=== PATIENT | male | born 1995 | race Caucasian/White ===

== ENCOUNTER 2017-06-07 01:22 | Emergency (ER) | payer BC ==
[~2017-06-07 01:22] MED LIST: CEPH-460 PO; HYDR12.56 PO; PERC2.5T PO
[2017-06-07 01:24] VITALS: BP 163/102; PULSE 76; RESP 16; TEMP 98.6; O2SAT 98
--- NOTE | 2017-06-07 02:58 | PD ---
HPI Chief Complaint: Injury Time Seen by Provider: 02:49 Travel History International Travel<30 days: No Contact w/Intl Traveler<30days: No Traveled to known affect area: No History of Present Illness HPI Patient comes in complaining injury to this left pinky finger occurred shortly prior to arrival. Patient states he fell causing injury. Patient states he felt like he dislocated it and tried pulling on his finger. Patient has not been able to extend distal phalanx of his left pinky since. Patient denies any pain with this. Patient placed ice prior to coming emergency department. Patient denies anything making symptoms better or worse. Denies any numbness or tingling. Denies any head injury or loss of consciousness. [facility] Social History Alcohol Use: No Tobacco Use: No Substance Use: No Allergies-Medications (Allergen,Severity, Reaction): Coded Allergies: Aspirin (Unverified Allergy, Severe, 06/07/17) Reported Meds & Prescriptions Reported Meds & Active Scripts Active Reported Hydrochlorothiazide 12.5 Mg Tab 12.5 Mg PO DAILY Review of Systems Except as stated in HPI: all other systems reviewed are Neg Physical Exam Narrative GENERAL: Well-developed, well nourished, in no acute distress, and non-ill appearing. SKIN: Focused skin assessment warm and dry. HEAD: Atraumatic. Normocephalic. EYES: Pupils equal and round. EOMI. No scleral icterus. No injection or drainage. ENT: No nasal bleeding or discharge. Mucous membranes pink and moist. NECK: Trachea midline. Supple. No nuclear rigidity. CARDIOVASCULAR: Radial pulses 2+, intact, and equal bilaterally. Capillary refill less than 2 seconds. RESPIRATORY: No accessory muscle use. No respiratory distress. MUSCULOSKELETAL: No obvious deformities. No clubbing. No cyanosis. No edema. Full range of motion with the exception patient not able to extend the distal phalanx of his left pinky finger. Appears to have a mallet finger. NEUROLOGICAL: Awake and alert. No obvious cranial nerve deficits. Motor grossly within normal limits. Normal speech. PSYCHIATRIC: Appropriate mood and affect; insight and judgment normal. Data Data Last Documented VS Vital Signs Date Time Temp Pulse Resp B/P Pulse Ox O2 Delivery O2 Flow Rate FiO2 06/07/17 03:08 76 16 96 Room Air 06/07/17 01:24 98.6 163/102 Orders Finger ([id number]) (06/07/17 ) Splint Or Brace Apply/Monitor (06/07/17 03:40) Finger Splint (06/07/17 ) MDM Medical Decision Making Medical Screen Exam Complete: Yes Emergency Medical Condition: Yes Interpretation(s) Finger x-ray by the radiologist shows: Hyperextension at the fifth digit PIP joint. No fracture or dislocation is identified. Differential Diagnosis Fracture, dislocation, tendon injury, other Narrative Course Patient in no obvious distress upon re-evaluation. All pertinent Radiology result(s) discussed with patient. Patient was asked if they wanted to speak to my attending, which the patient did not wish to do at this time. Any questions/ concerns in reference to patient diagnosis/condition discussed and clarified prior to patient's discharge. Reinforced sheer importance of close follow up with patient's primary physician or primary care clinic and hand surgeon. Instructed patient to return to ED immediately, if symptoms return/worsen. Pt showed understanding of above instructions. Further instructions and recommendations were detailed in discharge paperwork. Pt ambulated without difficulty out of ED at discharge. Diagnosis Primary Impression: Mallet deformity of left little finger Referrals: Parvez Iraheta III, MD Patient Instructions: General Instructions Additional Instructions: Follow-up with hand surgeon this week for reevaluation. Wear finger splint at all times until reevaluated by hand surgeon. Use of Tylenol and/or ibuprofen as needed for pain. Follow instructions on the packaging. Return to the emergency department if symptoms get worse. Disposition: 01 DISCHARGE HOME Condition: Stable Marc Anderson Jun 07, 2017 02:58
--- NOTE | 2017-06-07 03:24 | RADRPT ---
EXAM DATE/TIME: 06/07/2017 03:09 [facility] COMPARISON: No previous studies available for comparison. INDICATIONS : Fall, injury to fifth digit. MEDICAL HISTORY : None. SURGICAL HISTORY : None. ENCOUNTER: Initial ACUITY: 1 day PAIN SCORE: 10/10 LOCATION: Left 5th digit FINDINGS: 3 views of the left hand fifth digit demonstrates fixed extension at the proximal interphalangeal olya nt. No fracture or dislocation is appreciated. No soft tissue abnormality or radiopaque foreign body is identified. Visualized left hand structures otherwise demonstrate no acute finding. CONCLUSION: Hyperextension at the fifth digit PIP joint. No fracture or dislocation is identified. Manoj Cerda MD on June 07, 2017 at 3:21 Board Certified Radiologist. This report was verified electronically.
== END 2017-06-07 04:01 | disposition home or self-care (01) ==
LOC: NEPD 01:22
DX: M20.012 Mallet finger of left finger(s) (principal); Z79.899 Other long term (current) drug therapy
CPT/HCPCS: 29130; 73140